=== PATIENT | female | born 1930 | race Caucasian/White ===

== ENCOUNTER 2017-02-23 10:09 | Observation (INO) ==
[2017-02-23 11:05] LABS: Basophils % 0.2 %; Eosinophils # 0.2 K/mcL (0.0-0.6); Eosinophils % 3.4 %; Hemoglobin 13.7 g/dL (11.5-15.4); Immature Granulocytes % 0.5 % (0-4); Lymphocytes # 1.3 K/mcL (0.6-4.6); Lymphocytes % 21.9 %; Mean Corpuscular HGB Conc 33.4 g/dL (31.6-35.5); Mean Corpuscular Hemoglobin 30.4 pg (28.0-33.3); Mean Corpuscular Volume 91.1 fL (83.0-100.0); Mean Platelet Volume 9.5 fL (9.4-12.4); Monocytes # 0.6 K/mcL (0.0-1.3); Monocytes % 10.9 %; Neutrophils # 3.7 K/mcL (1.6-8.9); Platelet Count 169 K/mcL (140-400); Red Cell Distribution Width 13.3 % (11.5-14.5); Segmented Neutrophils % 63.1 %
[2017-02-23 11:18] LABS: BUN/Creatinine Ratio 15 (6-26); Blood Urea Nitrogen 14 mg/dL (7-20); Calcium 9.8 mg/dL (8.6-10.8); Carbon Dioxide 29 mEq/L (19-29); Chloride 101 mEq/L (98-109); Glucose 95 mg/dL (70-99); Osmolality,Calculated 278 (280-300); Potassium 4.6 mEq/L (3.5-4.5); Sodium 134 mEq/L (136-145); eGFR For African Americans > 60 (> 60); eGFR For Non-African Americans 55 (> 60)
--- NOTE | 2017-02-23 12:32 | Emergency Department Note ---
Disposition Clinical Impression: Near syncope, Weakness generalized, Bradycardia Disposition: Admitted As Inpatient Condition: Fair Time of Disposition: 15:27 Abdominal Pain HPI - General Chief Complaint: ED Abdominal Pain Stated Complaint: Low back pain/Dizzy/general weakness Time Seen by Provider: 02/23/17 10:19 Source: patient Nursing Notes Reviewed: Yes Vital Signs Reviewed: Yes - History of Present Illness HPI Narrative: 78-year-old female presents ED because of recurrent episodes of near syncope. Over the past 10 days she has had recurrent episodes of near syncope feeling like she is going to pass out. This is sometimes associated with pain in the left posterior thorax. Complains of associated weakness, nausea as well as diaphoresis and family describes her looking very pale during these episodes. No anterior or precordial chest discomfort. No headaches. No actual syncope or falls. No abdominal pain. She does complain of intermittent flank pain but this is currently resolved. No dysuria, hematuria or polyuria. No focal weakness. 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 Pain Severity: moderate Pain Scale: 6 Quality: aching Radiation: none Migration to: no migration Improves with: nothing Worsens with: nothing Associated symptoms: Reports: nausea - Related Data Home Medications Medication Instructions Recorded Confirmed Amlodipine Besylate 10 mg PO DAILY 02/23/17 02/23/17 Calcium Carbonate/Vitamin D3 1 tab PO DAILY 02/23/17 02/23/17 [Calcium 600 + Vit D Tablet] Losartan Potassium [Cozaar] 100 mg PO DAILY 02/23/17 02/23/17 Metoprolol XL (24 HR) Succ [Toprol 25 mg PO BID 02/23/17 02/23/17 XL] Olopatadine HCl [Pazeo] 1 drop OP AD 02/23/17 02/23/17 Ranitidine HCl [Zantac] 150 mg PO BID 02/23/17 02/23/17 Allergies Allergy/AdvReac Type Severity Reaction Status Date / Time Sulfa (Sulfonamide Allergy Rash Verified 02/23/17 10:12 Antibiotics) All systems ED: reviewed and negative except as stated. Constitutional: Denies: fever, chills, weakness Eyes: Denies: eye pain Cardiovascular: Denies: chest pain, palpitations Respiratory: Denies: cough, dyspnea Gastrointestinal: Reports: nausea. Denies: abdominal pain, vomiting Genitourinary: Denies: urgency Musculoskeletal: Reports: back pain. Denies: neck pain Neurological: Reports: weakness (generalized ). 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 Absent: respiratory distress - Cardiovascular Cardiovascular exam: Present: regular rate, normal rhythm - Abdominal Exam Abdominal exam: Present: soft, Non-Tender. Absent: tenderness - Extremities Exam Extremities exam: Present: normal inspection - Expanded Lower Extremity Exam Lower leg exam: Absent: tenderness, swelling - Back Exam Back exam: Absent: tenderness, CVA tenderness (R), CVA tenderness (L) - Neurological Exam Neurological exam: Present: alert, oriented X3 - Psychiatric Psychiatric exam: Present: normal affect - Skin Skin exam: Present: warm, dry Course - Reevaluation(s) Reevaluation #1: Awaiting U/A Time: 12:32 Reevaluation #2: Awaiting U/A Time: 13:29 Reevaluation #3: Patient is had no further episodes throughout her time in . Initial workup was unremarkable. Imaging is not warranted as she is not currently having any pain in her back or flank. This may just be more of a phase of this pressure response to the pain but given the intermittent nature and intensity of the symptoms she will be observed in the hospital for recurrent near syncope. Case was discussed with Dr. Velasquez for admission Time: 15:26 Vital Signs Temperature 97.3 F L 02/23/17 10:14 Pulse Rate 58 02/23/17 10:14 Respiratory Rate 20 02/23/17 10:14 Blood Pressure 167/90 02/23/17 10:14 O2 Sat by Pulse Oximetry 94 02/23/17 10:14 Temperature 97.3 F L 02/23/17 10:14 Pulse Rate 50 02/23/17 11:32 Respiratory Rate 14 02/23/17 15:20 Blood Pressure 148/83 02/23/17 15:20 O2 Sat by Pulse Oximetry 97 02/23/17 11:32 Oxygen Delivery Oxygen Delivery Room Air Abdominal Pain - Lab Data Result diagrams: 02/23/17 10:45 02/23/17 10:45 Lab Results 02/23/17 02/23/17 02/23/17 Range/Units 10:45 10:45 10:45 WBC 5.9 (4.3-11.1) K/mcL RBC 4.50 (3.82-4.97) M/mcL Hgb 13.7 (11.5-15.4) g/dL Hct 41.0 (35.3-44.9) % MCV 91.1 (83.0-100.0) fL MCH 30.4 (28.0-33.3) pg MCHC 33.4 (31.6-35.5) g/dL RDW 13.3 (11.5-14.5) % Plt Count 169 (140-400) K/mcL MPV 9.5 (9.4-12.4) fL Immature Gran % 0.5 (0-4) % Seg Neutrophils % 63.1 % Lymphocytes % 21.9 % Monocytes % 10.9 % Eosinophils % 3.4 % Basophils % 0.2 % Neutrophils # 3.7 (1.6-8.9) K/mcL Lymphocytes # 1.3 (0.6-4.6) K/mcL Monocytes # 0.6 (0.0-1.3) K/mcL Eosinophils # 0.2 (0.0-0.6) K/mcL Basophils # 0.0 (0.0-0.2) K/mcL Sodium 134 L (136-145) mEq/L Potassium 4.6 H (3.5-4.5) mEq/L Chloride 101 (98-109) mEq/L Carbon Dioxide 29 (19-29) mEq/L BUN 14 (7-20) mg/dL Creatinine 0.96 (0.57-1.11) mg/dL Est GFR ( Amer) > 60 (> 60) Est GFR (Non-Af Amer) 55 L (> 60) BUN/Creatinine Ratio 15 (6-26) Glucose 95 (70-99) mg/dL Calculated Osmolality 278 L (280-300) Calcium 9.8 (8.6-10.8) mg/dL Troponin I 0.01 (0-0.03) ng/mL Urine Color (Yellow) Urine Clarity (Clear) Urine pH (5.0-8.0) pH Units Ur Specific [place] (1.010-1.025) Urine Protein (Neg-Trace) mg/dL Urine Glucose (UA) (Normal) mg/dL Urine Ketones (Negative) mg/dL Urine Blood (Negative) Urine Nitrite (Negative) Urine Bilirubin (Negative) Urine Urobilinogen (Normal) mg/dL Ur Leukocyte Esterase (Negative) Urine Microscopic RBC (0-3) per hpf Urine Microscopic WBC (0-3) per hpf Ur Squamous Epith Cells (None-Few) per lpf Urine Bacteria (None-Few) per hpf Hyaline Casts (None-Few) per lpf 02/23/17 Range/Units 15:05 WBC (4.3-11.1) K/mcL RBC (3.82-4.97) M/mcL Hgb (11.5-15.4) g/dL Hct (35.3-44.9) % MCV (83.0-100.0) fL MCH (28.0-33.3) pg MCHC (31.6-35.5) g/dL RDW (11.5-14.5) % Plt Count (140-400) K/mcL MPV (9.4-12.4) fL Immature Gran % (0-4) % Seg Neutrophils % % Lymphocytes % % Monocytes % % Eosinophils % % Basophils % % Neutrophils # (1.6-8.9) K/mcL Lymphocytes # (0.6-4.6) K/mcL Monocytes # (0.0-1.3) K/mcL Eosinophils # (0.0-0.6) K/mcL Basophils # (0.0-0.2) K/mcL Sodium (136-145) mEq/L Potassium (3.5-4.5) mEq/L Chloride (98-109) mEq/L Carbon Dioxide (19-29) mEq/L BUN (7-20) mg/dL Creatinine (0.57-1.11) mg/dL Est GFR ( Amer) (> 60) Est GFR (Non-Af Amer) (> 60) BUN/Creatinine Ratio (6-26) Glucose (70-99) mg/dL Calculated Osmolality (280-300) Calcium (8.6-10.8) mg/dL Troponin I (0-0.03) ng/mL Urine Color Yellow (Yellow) Urine Clarity Clear (Clear) Urine pH 7.0 (5.0-8.0) pH Units Ur Specific [place] 1.010 (1.010-1.025) Urine Protein Negative (Neg-Trace) mg/dL Urine Glucose (UA) Normal (Normal) mg/dL Urine Ketones Negative (Negative) mg/dL Urine Blood Negative (Negative) Urine Nitrite Negative (Negative) Urine Bilirubin Negative (Negative) Urine Urobilinogen Normal (Normal) mg/dL Ur Leukocyte Esterase Trace H (Negative) Urine Microscopic RBC 0-3 (0-3) per hpf Urine Microscopic WBC 0-3 (0-3) per hpf Ur Squamous Epith Cells Moderate H (None-Few) per lpf Urine Bacteria None Seen (None-Few) per hpf Hyaline Casts None Seen (None-Few) per lpf - EKG Data EKG attestation: Yes I reviewed and interpreted this EKG. EKG results narrative: Sinus bradycardia with a rate of 58. Electrical indices within normal limits. [place] is normal. Moderate criteria for left ventricular hypertrophy. No acute ST or T-wave abnormalities present. EKG shows normal: sinus rhythm, axis, intervals Rate: bradycardia
[2017-02-23 15:27] LABS: Bilirubin,Urine Negative (Negative); Blood,Urine Negative (Negative); Clarity,Urine Clear (Clear); Color,Urine Yellow (Yellow); Glucose,Urine (UA) Normal (Normal); Ketones,Urine Negative (Negative); Leukocyte Esterase,Urine Trace (Negative); Nitrite,Urine Negative (Negative); Protein,Urine Negative (Neg-Trace); Urobilinogen,Urine Normal (Normal)
[2017-02-23 15:30] LABS: Bacteria,Urine None Seen per hpf (None-Few); Hyaline Casts,Urine None Seen per lpf (None-Few); RBC,Urine 0-3 per hpf (0-3); Squamous Epithelial Cell,Urine Moderate per lpf (None-Few); WBC,Urine 0-3 per hpf (0-3)
--- NOTE | 2017-02-23 15:31 | Internal Med History&Physical ---
Date of Encounter: 02/23/17 Time of Encounter: 15:29 Assessment and Plan (1) Near syncope Current visit: Yes Status: Acute Near-syncope: -Admitted as observation. -CBC/CMP/troponin -CT head. -Patient has a recent echo in December 2015: Normal ejection fraction, elevated RVSP : 41 -In view of recent echocardiogram which was around 1 year back, we will not consider echocardiogram at this point. -Patient is a 86-year-old, likely she will go for any vascular surgical intervention. Hence we will not order ultrasound carotid. -Fall precaution/bleeding precautions (2) Weakness generalized Current visit: Yes Status: Acute Generalized weakness: -Possible underlying UTI. (3) Bradycardia Current visit: Yes Status: Acute Noted that patient is known to have a bradycardia. We will monitor closely on telemetry. Bradycardia persistent then we may get a cardiology consult tomorrow. (4) DVT prophylaxis Current visit: Yes Status: Acute Heparin Medical decision making: This patient has a moderate to severe risk of worsening in spite of being on appropriate treatment due to underlying advanced age and medical conditions. Internal Medicine - H&P: HPI Chief complaint: syncopal episode. Admitted From: Emergency Dept Plans for Post Hospital Care: Home History of present illness: 86/F PCP: Dr. Lizbet Gomez. Brief past medical history: Hypertension, GERD History of present illness: Patient has a ongoing history of unsteady gait, multiple episodes of passing out and recurrent episodes of near syncope in last 10 days. Patient also complains of low back pain/dizziness along with generalized weakness. She complains vague abdominal pain where she claims that the whole abdomen is achy. Patient denies chest pain, shortness of breath, nausea, vomiting, diarrhea or urinary symptoms. Evaluation at ER: Patient was evaluated in the emergency room and was hospitalized for possible multiple syncopal episodes of unknown origin. Reason for admission: Multiple syncopal episode to rule out TIA/CVA. Family history: noncontributory Past Med Surg Social Fam HX - Past Medical History Medical history: cancer, hypertension, osteoporosis Psychiatric history: no psych history - Social History Smoking Status: Never smoker Smokeless Tobacco Status: No Alcohol use: none Drug use: none - Family History Mother Hx Family Cancer: Yes Internal Medicine - H&P: Meds Amlodipine Besylate 10 mg PO DAILY 02/23/17 [History] Calcium Carbonate/Vitamin D3 [Calcium 600 + Vit D Tablet] 1 tab PO DAILY [History] Losartan Potassium [Cozaar] 100 mg PO DAILY 02/23/17 [History] Metoprolol XL (24 HR) Succ [Toprol XL] 25 mg PO BID 02/23/17 [History] Olopatadine HCl [Pazeo] 1 drop OP AD 02/23/17 [History] Ranitidine HCl [Zantac] 150 mg PO BID 02/23/17 [History] Allergies Sulfa (Sulfonamide Antibiotics) Allergy (Verified 02/23/17 10:12) Rash All Systems PM: A 10-system review of systems was performed and is negative for pertinent findings except as documented above in the HPI. - Constitutional Constitutional: no chills, no fever(s), no night sweats - EENT Eyes: no change in vision, no discharge, no pain, no photophobia Ears: no ear discharge, no ear pain, no tinnitus Nose, mouth and throat: no dysphagia, no nasal discharge, no neck pain, no sore throat - Cardiovascular Cardiovascular ROS IM: no chest pain, no diaphoresis, no dyspnea, no lightheadedness, no palpitations, no syncope - Respiratory Respiratory: no cough, no dyspnea, no wheezing, no excessive phlegm production - Gastrointestinal Gastrointestinal: no abdominal pain, no diarrhea, no hematemesis, no hematochezia, no melena, no nausea, no vomiting - Genitourinary Genitourinary: no change in urinary stream, no dysuria, no flank pain, no hematuria - Musculoskeletal Musculoskeletal ROS IM: no numbness, no tingling - Integumentary Integumentary IM: no rash, no unusual bruising - Neurological Neurological ROS: no confusion, no convulsions, no focal weakness, no numbness, no tingling, no tremor(s) - Hematologic/Lymphatic Hematologic/Lymphatic: no easy bruising - Constitutional Vitals: Temp Pulse Resp BP Pulse Ox 97.3 F L 50 14 148/83 97 02/23/17 10:14 02/23/17 11:32 02/23/17 15:20 02/23/17 15:20 02/23/17 11:32 General appearance: Present: A&O X 3, pleasant, no acute distress, answers questions appropriately - Head Head exam: Present: atraumatic, normocephalic - Eye Eye exam: Present: PERRL, conjuntiva pink, sclera anicteric Pupils: Present: PERRL - Neck Neck exam general surgery: Present: supple, trachea midline. Absent: lymphadenopathy - Respiratory Respiratory exam: Present: CTAB. Absent: accessory muscle use, rales, rhonchi, wheezes - Cardiovascular Cardiovascular exam: Present: RRR, +S1, +S2. Absent: diastolic murmur, gallop, rubs, systolic murmur - GI/Abdominal GI/Abdominal exam: Present: normal bowel sounds, soft, no peritoneal signs. Absent: distended, tenderness - Extremities Exam Extremities exam: Present: warm, radial pulses palpable and symetrical. Absent : calf tenderness, cyanotic, pedal edema - Neurological Exam Neurological exam: Present: CN II-XII intact, oriented X3, no focal deficits. Absent: pronater drift, facial droop, speech deficit - Skin Skin exam: Present: dry, intact Internal Med - H&P Results - Labs CBC & Chem 7: 02/23/17 10:45 02/23/17 10:45
[2017-02-23] MEDS ORDERED: Naloxone 0.4 MG/ML INJ IVP PRN (15:32)
[2017-02-23] MEDS ORDERED: Acetaminophen 325 MG TABLET PO PRN (15:32)
[2017-02-23] MEDS: OLOPATADINE HCL OP SCH (16:14)
[2017-02-23] MEDS: Metoprolol XL (24 HR) Succ 25 MG TAB.ER.24H PO SCH (21:13)
[2017-02-23] MEDS ORDERED: Simethicone 80 MG TAB.CHEW PO PRN (22:59)
[2017-02-24 02:09] LABS: Basophils % 0.3 %; Eosinophils # 0.3 K/mcL (0.0-0.6); Eosinophils % 3.7 %; Hematocrit 38.5 % (35.3-44.9); Hemoglobin 12.9 g/dL (11.5-15.4); Immature Granulocytes % 0.4 % (0-4); Lymphocytes # 1.7 K/mcL (0.6-4.6); Lymphocytes % 24.2 %; Mean Corpuscular HGB Conc 33.5 g/dL (31.6-35.5); Mean Corpuscular Hemoglobin 30.5 pg (28.0-33.3); Mean Platelet Volume 10.1 fL (9.4-12.4); Monocytes % 13.6 %; Neutrophils # 4.1 K/mcL (1.6-8.9); Platelet Count 171 K/mcL (140-400); Red Blood Count 4.23 M/mcL (3.82-4.97); Red Cell Distribution Width 13.3 % (11.5-14.5); Segmented Neutrophils % 57.8 %
[2017-02-24 02:18] LABS: Alanine Aminotransferase 9 Units/L (0-55); Albumin 3.6 g/dL (3.5-5.0); Albumin/Globulin Ratio 1.1 (1.1-2.2); Alkaline Phosphatase 68 Units/L (38-126); Aspartate Amino Transferase 20 Units/L (5-34); BUN/Creatinine Ratio 17 (6-26); Blood Urea Nitrogen 15 mg/dL (7-20); Calcium 9.2 mg/dL (8.6-10.8); Carbon Dioxide 26 mEq/L (19-29); Chloride 102 mEq/L (98-109); Globulin 3.3 g/dL (2.4-3.5); Glucose 82 mg/dL (70-99); Osmolality,Calculated 278 (280-300); Phosphorous 2.9 mg/dL (2.3-4.7); Potassium 3.7 mEq/L (3.5-4.5); Sodium 134 mEq/L (136-145); Total Protein 6.9 g/dL (6.0-8.3); eGFR For African Americans > 60 (> 60); eGFR For Non-African Americans > 60 (> 60)
[2017-02-24] MEDS: amLODIPine 5 MG TABLET PO SCH (08:42)
[2017-02-24] MEDS: Metoprolol XL (24 HR) Succ 25 MG TAB.ER.24H PO SCH ×2 (08:42→20:04)
[2017-02-24] MEDS: (Calcium Carbonate/Vitamin D3 [Calcium 600 + Vit D Tab]) PO SCH (08:43)
--- NOTE | 2017-02-24 09:39 | Electrocardiograph Report ---
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
[2017-02-24] MEDS: OLOPATADINE HCL OP SCH (15:22)
--- NOTE | 2017-02-24 15:25 | Internal Med Progress Note ---
<Toño Wellington - Last Filed: 02/24/17 15:28> Date of Encounter: 02/24/17 Time of Encounter: 08:30 - Assessment and plan (1) Near syncope Current Visit: Yes Status: Acute Assessment and plan: -Recurrent presyncopal events likely vasovagal in nature vs symptomatic bradycardia vs orthostatic -Head CT in ER demonstrated no intracranial event. -EKG showed sinus bradycardia with rate of 58 -The patient has no chest pain, SOB, head ache, or changes in the level of consciousness. She has no focal neurological deficits. -Patient describes an aura associated with near syncope that is predictable, and results in clammy sensation, mild nausea, and changes in vision that all resolve within a few seconds-minutes. -Patient has a history of mechanical falls that she said are not associated with these symptoms. (2) History of recent fall Current Visit: Yes Status: Acute (3) Bradycardia Current Visit: Yes Status: Acute Assessment and plan: -The patient has a steady pulse rate that averages 50-60. -This rate appears to be baseline for the patient. -She tolerates repositioning from sitting to standing without any reproducible dizziness or unsteadiness on exam -At this time she appears stable, however we can consider a decrease in the dose of her Metoprolol if the bradycardia becomes more symptomatic. (4) Weakness generalized Current Visit: Yes Status: Acute Assessment and plan: -Patient seen and evaluated by PT/OT, who recommend SNF for skilled PT related to several ADLs -No focal neurological or muscular defecits can be identified on physical exam -Patient has a history of recent falls, and is concerned about the potential for injury in the future. -We will schedule a family meeting with RN SECURITY for the morning to determine the best course of action for discharge planning. (5) DVT prophylaxis Current Visit: Yes Status: Acute Assessment and plan: As the patient has a history of recent falls and is admitted for near syncopal episodes, we will use SCDs for DVT Prophylaxis. - Subjective Interval history: at the time of examination the patient was resting comfortably. She states that she's feeling better, and has had no episodes of dizziness since admission. She does admit that she still feels weak, and she has concerns about potential falls in the future. She is otherwise well, and in no acute distress. - Constitutional Vitals: Temp Pulse Resp BP Pulse Ox 97.8 F 55 15 99/54 94 02/24/17 10:55 02/24/17 10:55 02/24/17 10:55 02/24/17 10:55 02/24/17 10:55 General appearance: Present: A&O X 3, pleasant, no acute distress, answers questions appropriately - Head Head exam: Present: atraumatic, normocephalic - Eye Eye exam: Present: PERRL, conjuntiva pink, sclera anicteric Pupils: Present: PERRL - Neck Neck exam general surgery: Present: supple, trachea midline. Absent: lymphadenopathy - Respiratory Respiratory exam: Present: CTAB. Absent: accessory muscle use, rales, rhonchi, wheezes - Cardiovascular Cardiovascular exam: Present: RRR, +S1, +S2, systolic murmur. Absent: diastolic murmur, gallop, rubs Additional comments: 1/6 systolic ejection murmur heard most clearly over the pulmonic valve, with radiation into the right carotid artery. There are no bruits heard over the carotid arteries. - GI/Abdominal GI/Abdominal exam: Present: normal bowel sounds, soft, no peritoneal signs. Absent: distended, tenderness - Extremities Exam Extremities exam: Present: warm, radial pulses palpable and symetrical. Absent : calf tenderness, cyanotic, pedal edema - Neurological Exam Neurological exam: Present: CN II-XII intact, oriented X3, no focal deficits, strengths equal and symetr throughout. Absent: pronater drift, facial droop, speech deficit - Psychiatric Psychiatric exam: Present: flat affect, normal mood. Absent: depressed, suicidal ideation - Skin Skin exam: Present: dry, intact Internal Medicine: Result - Labs CBC & Chem 7: 02/24/17 01:02 02/24/17 01:02 Labs: Short CBC 02/24/17 Range/Units 01:02 WBC 7.1 (4.3-11.1) K/mcL Hgb 12.9 (11.5-15.4) g/dL Hct 38.5 (35.3-44.9) % Plt Count 171 (140-400) K/mcL Neutrophils # 4.1 (1.6-8.9) K/mcL BMP 02/24/17 01:02 Sodium 134 L Potassium 3.7 Chloride 102 Carbon Dioxide 26 BUN 15 Creatinine 0.88 Glucose 82 Calcium 9.2 Cardiac Enzymes 02/23/17 02/24/17 Range/Units 18:01 01:02 Troponin I 0.01 0.01 (0-0.03) ng/mL Liver Function 02/24/17 Range/Units 01:02 Total Bilirubin 1.0 (0.2-1.2) mg/dL AST 20 (5-34) Units/L ALT 9 (0-55) Units/L Alkaline Phosphatase 68 (38-126) Units/L Albumin 3.6 (3.5-5.0) g/dL - Impressions Impressions Head CT 02/23/17 20:04 IMPRESSION: No acute intracranial abnormality. D/ / Gurvinder Stephens MD / Gurvinder Stephens MD Interpreting Provider: Gurvinder Stephens MD Consult Discharge Plan - Plan Referrals: Lizbet Murrieta MD [Primary Care Provider] - 03/03/17 2:00 pm (DR. Murrieta is on maternity leave appointment will be with Jojo Magana CNP. Thank You ) <Harlan Velasquez P - Last Filed: 02/24/17 18:31> Date of Encounter: 02/24/17 - Assessment and plan (1) Near syncope Current Visit: Yes Status: Acute (2) Weakness generalized Current Visit: Yes Status: Acute (3) Bradycardia Current Visit: Yes Status: Acute (4) DVT prophylaxis Current Visit: Yes Status: Acute - Constitutional Vitals: Temp Pulse Resp BP Pulse Ox 98.1 F 57 16 105/65 94 02/24/17 16:02 02/24/17 16:02 02/24/17 16:02 02/24/17 16:02 02/24/17 16:02 Internal Medicine: Result - Labs CBC & Chem 7: 02/24/17 01:02 02/24/17 01:02 Labs: Short CBC 02/24/17 Range/Units 01:02 WBC 7.1 (4.3-11.1) K/mcL Hgb 12.9 (11.5-15.4) g/dL Hct 38.5 (35.3-44.9) % Plt Count 171 (140-400) K/mcL Neutrophils # 4.1 (1.6-8.9) K/mcL BMP 02/24/17 01:02 Sodium 134 L Potassium 3.7 Chloride 102 Carbon Dioxide 26 BUN 15 Creatinine 0.88 Glucose 82 Calcium 9.2 Cardiac Enzymes 02/23/17 02/24/17 Range/Units 18:01 01:02 Troponin I 0.01 0.01 (0-0.03) ng/mL Liver Function 02/24/17 Range/Units 01:02 Total Bilirubin 1.0 (0.2-1.2) mg/dL AST 20 (5-34) Units/L ALT 9 (0-55) Units/L Alkaline Phosphatase 68 (38-126) Units/L Albumin 3.6 (3.5-5.0) g/dL - Impressions Impressions Head CT 02/23/17 20:04 IMPRESSION: No acute intracranial abnormality. D/ / Gurvinder Stephens MD / Gurvinder Stephens MD Interpreting Provider: Gurvinder Stephens MD - Attending Attestation I examined this patient and my medical decision-making was reviewed with the Resident Physician. I agree with the documented findings, disposition and treatment plan as described except to the extent set forth below. Physical therapy recommended inpatient rehabilitation. Family meeting is scheduled tomorrow at 9 AM. We will follow the recommendations from the family.
[2017-02-25 07:08] VITALS: BP 120/71
[2017-02-25] MEDS: (Calcium Carbonate/Vitamin D3 [Calcium 600 + Vit D Tab]) PO SCH (08:54)
[2017-02-25] MEDS: amLODIPine 5 MG TABLET PO SCH (08:54)
[2017-02-25] MEDS: Metoprolol XL (24 HR) Succ 25 MG TAB.ER.24H PO SCH (08:54)
--- NOTE | 2017-02-25 10:22 | Discharge Summary ---
<Toño Wellington - Last Filed: 02/25/17 12:57> Date of Encounter: 02/25/17 Time of Encounter: 09:45 - Discharge Diagnosis (1) Near syncope Priority: Primary Status: Acute Comments: -Recurrent presyncopal events likely vasovagal in nature vs symptomatic bradycardia vs orthostatic -Head CT in ER demonstrated no intracranial event. -EKG showed sinus bradycardia with rate of 58, cardiac specialist has demonstrated no arrythmias -The patient has no chest pain, SOB, head ache, or changes in the level of consciousness. She has no focal neurological deficits. -Patient describes an aura associated with near syncope that is predictable, and results in clammy sensation, mild nausea, and changes in vision that all resolve within a few seconds-minutes. -Patient has a history of mechanical falls that she said are not associated with these symptoms. -PT/OT has recommended that the patient go to ECF or SNF for skilled PT/OT to prevent falls. Patient and her daughter are not interested in pursuing this option at this time, but are willing to undergo home health with home PT/OT. We will send the patient home with these services, and clear instructions to follow up with primary care in 1-2 weeks, or sooner if she continues to have weakness or presyncopal events. (2) Weakness generalized Priority: Primary Status: Acute Comments: -Patient seen and evaluated by PT/OT, who recommend SNF for skilled PT related to several ADLs. -No focal neurological or muscular defecits can be identified on physical exam -Patient has a history of recent falls, and is concerned about the potential for injury in the future. -Patient has agreed to Home health with PT/OT for therapy related to her weakness and history of mechanical falls. (3) History of recent fall Priority: Secondary Status: Acute Comments: Reportedly mechanical. Patient agrees to home PT/OT at this time. She is living with her daughter who agrees to assist her. (4) Bradycardia Priority: Secondary Status: Acute Comments: -The patient has a steady pulse rate that averages 50-60. -This rate appears to be baseline for the patient. -She tolerates repositioning from sitting to standing without any reproducible dizziness or unsteadiness on exam -At this time she appears stable, however if she becomes symptomatic after discharge, her PCP may choose to decrease the dose of her metoprolol slightly. (5) DVT prophylaxis Priority: Secondary Status: Acute - Discharge Medications Home Medications: Amlodipine Besylate 10 mg PO DAILY 02/23/17 [History] Calcium Carbonate/Vitamin D3 [Calcium 600 + Vit D Tablet] 1 tab PO DAILY [History] Losartan Potassium [Cozaar] 100 mg PO DAILY 02/23/17 [History] Metoprolol XL (24 HR) Succ [Toprol Xl] 25 mg PO BID 02/23/17 [History] Olopatadine HCl [Pazeo] 1 drop OP AD 02/23/17 [History] Ranitidine HCl [Zantac] 150 mg PO BID 02/23/17 [History] Allergies/Adverse Reactions: Allergies Sulfa (Sulfonamide Antibiotics) Allergy (Verified 02/23/17 10:12) Rash Procedures/tests Complete & Pending: Procedures Performed prior 72 hours Category Date Time Status CT head/brain wo con [CT] Routine Cat Scan 02/23/17 20:04 Completed Date of admission: 02/23/17 15:19 Primary care physician: Lizbet Murrieta, Consults: 02/24/17 08:45 Consult to Discharge Planning [CONS] Routine Comment: Consult to Occupational Therapy [CONS] Routine Comment: Evaluate, develop and implement POC Reason for Consult: weakness Consult to Physical Therapy [CONS] Routine Comment: Evaluate, develop and implement POC Reason for Consult: weakness 02/25/17 07:21 Consult to Dashboard Developer [CONS] Routine Reason for SW Consult: Discharge planning - PT/OT recommend SNF Discharging clinician: Harlan Velasquez Anticipated date of discharge: 02/25/17 - Patient Status Disposition: Home Health Service Condition: Fair Overall status at discharge: patient is not back to baseline - Discharge Instructions Instructions: Syncope (GEN), Fall Prevention (GEN) Follow Up With: Lizbet Murrieta MD [Primary Care Provider] - 03/03/17 2:00 pm (DR. Murrieta is on maternity leave appointment will be with Jojo Magana CNP. Thank You ) Additional Instructions: Patient should follow-up with her primary care provider within 1-2 weeks to determine long-term plan for generalized weakness and rehabilitation. - Diet and Activity Activity: as per physical therapy Diet: advance to your usual diet Hospital course: Ms. Diamond is a 86 year old female with history of GERD, hypertension. She presented to the ER complaining of near syncopal episodes in the last 10 days that seem to be getting more frequent. She admits to history of recent mechanical falls that she associates with some mild dizziness and generalized weakness. She was admitted to the hospital to rule out TIA/CVA. CT of the head demonstrated no acute intracranial process, troponins were negative, recent echocardiogram in 2016 showed a normal ejection fraction with elevated right ventricular systolic pressure at 41. She was evaluated for a possible UTI but did not have one. Over the course of her hospital stay she was on the cardiac specialist which never showed any new arrhythmias, though she did occasionally have some bradycardia. Physical therapy and occupational therapy evaluated the patient and determined that inpatient physical therapy would be necessary to regain some strength and balance and coordination that she was lacking. They recommended ECF or SNF, however the patient is not willing to admit to a treatment at an ECF facility at this time. We will discharge the patient with home health and nursing home PT and OT. This is a plan that both the patient and the patient's family is in agreement with. - Time Spent with Patient Total time spent providing and/or coordinating discharge services: - Constitutional Vitals: Temp Pulse Resp BP Pulse Ox 98.1 F 58 15 120/71 92 02/25/17 07:08 02/25/17 07:08 02/25/17 07:08 02/25/17 07:08 02/25/17 07:08 General appearance: Present: A&O X 3, pleasant, no acute distress, answers questions appropriately Exam: - Head Head exam: Present: atraumatic, normocephalic - Eye Eye exam: Present: PERRL, conjuntiva pink, sclera anicteric Pupils: Present: PERRL - Neck Neck exam general surgery: Present: supple, trachea midline. Absent: lymphadenopathy - Respiratory Respiratory exam: Present: CTAB. Absent: accessory muscle use, rales, rhonchi, wheezes - Cardiovascular Cardiovascular exam: Present: RRR, +S1, +S2, systolic murmur. Absent: diastolic murmur, gallop, rubs Additional comments: 1/6 systolic ejection murmur heard most clearly over the pulmonic valve, with radiation into the right carotid artery. There are no bruits heard over the carotid arteries. - GI/Abdominal GI/Abdominal exam: Present: normal bowel sounds, soft, no peritoneal signs. Absent: distended, tenderness - Extremities Exam Extremities exam: Present: warm, radial pulses palpable and symetrical. Absent : calf tenderness, cyanotic, pedal edema - Neurological Exam Neurological exam: Present: CN II-XII intact, oriented X3, no focal deficits, strengths equal and symetr throughout. Absent: pronater drift, facial droop, speech deficit - Psychiatric Psychiatric exam: Present: flat affect, normal mood. Absent: depressed, suicidal ideation - Skin Skin exam: Present: dry, intact <Eva,Harlan P - Last Filed: 02/25/17 18:33> Date of Encounter: 02/25/17 - Discharge Diagnosis (1) Near syncope Status: Acute (2) Weakness generalized Status: Acute (3) Bradycardia Status: Acute (4) DVT prophylaxis Status: Acute Procedures/tests Complete & Pending: Procedures Performed prior 72 hours Category Date Time Status CT head/brain wo con [CT] Routine Cat Scan 02/23/17 20:04 Completed Date of admission: 02/23/17 15:19 Primary care physician: Lizbet Murrieta, Consults: 02/24/17 08:45 Consult to Discharge Planning [CONS] Routine Comment: Consult to Occupational Therapy [CONS] Routine Comment: Evaluate, develop and implement POC Reason for Consult: weakness Consult to Physical Therapy [CONS] Routine Comment: Evaluate, develop and implement POC Reason for Consult: weakness 02/25/17 07:21 Consult to Dashboard Developer [CONS] Routine Reason for SW Consult: Discharge planning - PT/OT recommend SNF Hospital course: Ms. Diamond is a 86 year old female - Time Spent with Patient Total time spent providing and/or coordinating discharge services: - Constitutional Vitals: Temp Pulse Resp BP Pulse Ox 98.1 F 58 15 120/71 92 02/25/17 07:08 02/25/17 07:08 02/25/17 07:08 02/25/17 07:08 02/25/17 07:08 - Attending Attestation I examined this patient and my medical decision-making was reviewed with the Resident Physician. I agree with the documented findings, disposition and treatment plan as described except to the extent set forth below.
--- NOTE | 2017-02-25 10:24 | Physician Discharge Referral ---
<Toño Wellington - Last Filed: 02/25/17 10:23> Home Health/Hosp Referral Info Transfer to: Home Health Attending Provider: Dr. Zoya Velasquez Provider in Charge Post Discharge: PCP - Diagnosis (1) Near syncope Priority: Primary Status: Acute (2) Weakness generalized Priority: Primary Status: Acute (3) History of recent fall Priority: Secondary Status: Acute (4) Bradycardia Priority: Secondary Status: Acute (5) DVT prophylaxis Priority: Secondary Status: Acute - Respiratory Orders Smoking Cessation: Smoking cessation has been advised. For more information, call the [place] [employer] Quit Line at 3-267-RVRC-NOW. - Diet/Nutrition Diet/Nutrition Orders: Regular - Activity Activity Orders: Ambulate Activity: List: Following the recommendations of PT/OT - Services Needed Following services are medically necessary services: Nursing, Home Health Aide, Physical Therapy, Occupational Therapy - Transfer Medications Home Medications: Amlodipine Besylate 10 mg PO DAILY 02/23/17 [History] Calcium Carbonate/Vitamin D3 [Calcium 600 + Vit D Tablet] 1 tab PO DAILY [History] Losartan Potassium [Cozaar] 100 mg PO DAILY 02/23/17 [History] Metoprolol XL (24 HR) Succ [Toprol Xl] 25 mg PO BID 02/23/17 [History] Olopatadine HCl [Pazeo] 1 drop OP AD 02/23/17 [History] Ranitidine HCl [Zantac] 150 mg PO BID 02/23/17 [History] Allergies/Adverse Reactions: Allergies Sulfa (Sulfonamide Antibiotics) Allergy (Verified 02/23/17 10:12) Rash Certification: Further, I certify that my clinical findings support that this patient is homebound (i.e. absences from home require considerable and taxing effort and are for medical reasons or religion services or infrequently or short duration when for other reasons) because: Homebound Reason: Patient requires assistance of a person or device to safely leave home, Leaving home requires considerable and taxing effort due to condition Attestation: My signature below is to certify that this patient is under my care and that I, or nurse practitioner, or a physician's hr assistant working with me, has a face-to -face encounter with this patient. <Harlan Velasquez - Last Filed: 02/25/17 18:34> - Diagnosis (1) Near syncope Status: Acute (2) Weakness generalized Status: Acute (3) Bradycardia Status: Acute (4) DVT prophylaxis Status: Acute - Respiratory Orders Smoking Cessation: Smoking cessation has been advised. For more information, call the [place] [employer] Quit Line at 0-466-USLH-NOW. Certification: Further, I certify that my clinical findings support that this patient is homebound (i.e. absences from home require considerable and taxing effort and are for medical reasons or religion services or infrequently or short duration when for other reasons) because: Attestation: My signature below is to certify that this patient is under my care and that I, or nurse practitioner, or a physician's hr assistant working with me, has a face-to -face encounter with this patient.
[2017-02-25] MEDS: OLOPATADINE HCL OP SCH (14:34)
== END 2017-02-25 15:16 | disposition home health service (06) ==
LOC: EMEROO 10:09 → 3BNU 10:09
PROVIDERS: ADMIT Internal Medicine; ATTEND Internal Medicine